=== PATIENT | female | born 1985 | race Caucasian/White ===

== ENCOUNTER 2017-12-02 10:44 | Emergency (ER) | payer OTHER, BC ==
[2017-12-02 11:03] VITALS: BP 117/77; PULSE 86; RESP 16; TEMP 98.1; O2SAT 97
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
== END 2017-12-02 11:37 | disposition home or self-care (01) ==
LOC: CED 10:44
DX: S16.1XXA Strain of muscle, fascia and tendon at neck level, initial encounter (principal); S06.0X0A Concussion without loss of consciousness, initial encounter; V47.5XXA Car driver injured in collision with fixed or stationary object in traffic accident, initial encounter; Y92.410 Unspecified street and highway as the place of occurrence of the external cause; Y99.8 Other external cause status; Y93.89 Activity, other specified